=== PATIENT | female | born 1980 | race Caucasian/White ===

== ENCOUNTER 2023-10-19 18:04 | Emergency (ER) | payer MEDICAID ==
[~2023-10-19] VITALS: Ht 167.6 cm; Wt 111.6 kg
[2023-10-19 18:07] VITALS: BP 122/69; PULSE 94; RESP 18; TEMP 98.5; O2SAT 100
[2023-10-19] MEDS ORDERED: diphenhydrAMINE 50 MG/ML VIAL IVP ONE (18:50)
[2023-10-19] MEDS: PROCHLORPERAZINE 10 MG/2 ML VIAL IVP ONE (19:13)
[2023-10-19] MEDS: NACL 0.9% 1,000 ML IV ONE (19:19)
[2023-10-19] MEDS: diphenhydrAMINE 50 MG/ML VIAL IVP ONE (19:30)
[2023-10-19 20:23] VITALS: BP 108/53; PULSE 85; RESP 20; O2SAT 100
[2023-10-19] MEDS: MORPHINE SULFATE 4 MG/ML SYR IVP ONE (21:35)
[2023-10-19 22:00] VITALS: BP 116/70; PULSE 81; RESP 16; TEMP 97.8; O2SAT 99
== END 2023-10-19 23:00 | disposition short-term general hospital (02) ==
LOC: MED 18:04
DX: R51.9 Headache, unspecified (principal); H57.89 Other specified disorders of eye and adnexa; Z98.2 Presence of cerebrospinal fluid drainage device; Z79.899 Other long term (current) drug therapy
CPT/HCPCS: 70260; 70360; 70450; 72170; 74021; 96361; 96374; 96375; 99285; J0780; J1200; J2270; J7030